=== PATIENT | male | born 1975 | race Two or more races ===

== ENCOUNTER 2019-05-24 15:23 | Emergency (ER) | payer SELFPAY ==
[~2019-05-24] VITALS: Ht 165.1 cm; Wt 122.5 kg
[2019-05-24] MEDS ORDERED: DICLOFENAC SODI25 MG ORAL (15:42)
[2019-05-24 15:55] VITALS: BP 123/86
--- NOTE | 2019-05-24 15:55 | NUR ---
ED Nurse Note: Patient walked in to ER c/o abdominal pain, N/V/D x4 days. States that was not able to hold anything down. Patient presentedd calm, pain 01/09, AAO x4, VSS at this time, skin is dry warm to touch.
[2019-05-24] MEDS ORDERED: Mylanta II UD 30ml ORAL ONE (16:00)
[2019-05-24] MEDS ORDERED: DiphenhydrAMINE 50mg/ml Inj IVP ONE (16:00)
[2019-05-24] MEDS ORDERED: Lidocaine 2% Visc 15ml soln ORAL ONE (16:00)
[2019-05-24] MEDS ORDERED: Metoclopramide 10mg/2ml Inj IVP ONE (16:00)
[2019-05-24 16:06] LABS: APPEARANCE,URINE CLEAR; BILIRUBIN, URINE NEGATIVE (NEGATIVE); GLUCOSE, URINE (UA) NEGATIVE (NEGATIVE); KETONES,URINE 1+ (NEGATIVE); LEUKOCYTE ESTERASE ,URINE NEGATIVE (NEGATIVE); NITRITE,URINE NEGATIVE (NEGATIVE); PH,URINE 6 (4.5-8.0); PROTEIN,URINE 2+ (NEGATIVE); UROBILINOGEN,URINE 1 MG/DL (0.0-1.0)
[2019-05-24 16:07] LABS: COLOR,URINE YELLOW
--- NOTE | 2019-05-24 16:14 | Emergency Room Report ---
History of Present Illness General Chief Complaint: Nausea, Vomiting, and Diarrhea Source: Patient Present Illness HPI Patient presents with several weeks of epigastric and right upper quadrant amber pain. He also says that sometimes it radiates from his right upper back down into his groin area. He takes diclofenac for osteoarthritis of his left knee. This is sent to him by his mother in [place]. He read last night that the diclofenac might cause problems with his stomach. He rates the pain 8/10, constant and radiating towards his back. Its of burning pain and he feels acid only in his stomach but also in his chest and esophagus. He has been taking Tums and other medicines for gastritis without help. He has had loose stools but they have been normal color without any blood. He denies any fevers or chills. The patient occasionally drinks alcohol but not daily. 6 years ago the patient was seen for similar complaints. At that time he had a gallstone. He says he got 1 IV injection to dissolve the gallstone. He has been doing fairly well since that time but has intermittent problems with his epigastric and right upper quadrant region with pain. The patient is disabled from left knee osteoarthritis. He walks with a cane. Allergies: Coded Allergies: No Known Allergies (Unverified , 05/24/19) Patient History Past Medical History: see triage record Social History: Reports: alcohol use; Denies: smoking, drug use Social History Narrative Born in [place], disabled from left knee osteoarthritis Reviewed Nursing Documentation: PMH: Agreed; PSxH: Agreed Nursing Documentation-PMH Hx Hypertension: Yes Review of Systems All Other Systems: negative except mentioned in HPI Physical Exam Vital Signs Date Time Temp Pulse Resp B/P (MAP) Pulse Ox O2 Delivery O2 Flow Rate FiO2 05/24/19 15:36 98.2 112 20 123/86 (98) 97 Room Air Sp02 EP Interpretation: reviewed, normal General Appearance: well appearing, no apparent distress, GCS 15, obese Head: normocephalic Eyes: bilateral eye normal inspection, bilateral eye PERRL, bilateral eye EOMI ENT: moist mucus membranes Neck: supple Respiratory: lungs clear, normal breath sounds Cardiovascular #1: regular rate, rhythm Cardiovascular #2: 2+ radial (R) Gastrointestinal: normal inspection, normal bowel sounds, no mass, non- distended, no guarding, no rebound, tenderness Genitourinary: no CVA tenderness Musculoskeletal: back normal, normal range of motion, other - Walks with limp due to left knee pain Neurologic: alert, oriented x3, grossly normal Psychiatric: mood/affect normal Skin: no rash, warm/dry Medical Decision Making Diagnostic Impression: Primary Impression: Abdominal pain Qualified Codes: R10.13 - Epigastric pain Additional Impressions: Gastritis Qualified Codes: K29.00 - Acute gastritis without bleeding Osteoarthritis of left knee Qualified Codes: M17.12 - Unilateral primary osteoarthritis, left knee ER Course Patient presents with right upper quadrant pain with a history of gallbladder disease and gastritis. Differential includes gallbladder disease, gastritis, peptic ulcer disease, renal stone, diverticulitis, pancreatitis amongst others. The patient will be evaluated with EKG, chest x-ray, ultrasound of the abdomen and labs. The patient will be treated with IV hydration, Reglan, Benadryl and Pepcid, Mylanta and lidocaine.. The patient came by taxi and this might preclude giving opiates. EKG without injury. Chest x-ray clear. Ultrasound with possible common bile duct dilatation. Labs with normal white count, CMP and lipase. Alleged CBD dilatation. CT ordered. CT without gallbladder abnormality. Pain is resolved after treatment. Discussed findings with patient and treatment plan. Patient stable for outpatient observation and treatment. Laboratory Tests Test 05/24/19 15:43 05/24/19 16:03 Urine Color Yellow Urine Appearance Clear Urine pH 6 (4.5-8.0) Urine Specific [place] 1.020 (1.005-1.035) Urine Protein 2+ (NEGATIVE) H Urine Glucose (UA) Negative (NEGATIVE) Urine Ketones 1+ (NEGATIVE) H Urine Blood Negative (NEGATIVE) Urine Nitrite Negative (NEGATIVE) Urine Bilirubin Negative (NEGATIVE) Urine Urobilinogen 1 MG/DL (0.0-1.0) H Urine Leukocyte Esterase Negative (NEGATIVE) Urine RBC 0 /HPF (0 - 0) Urine WBC 0-2 /HPF (0 - 0) Urine Squamous Epithelial Cells None /LPF (NONE/OCC) Urine Bacteria Few /HPF (NONE) Urine Mucus Few /LPF (NONE/OCC) H White Blood Count 9.1 K/UL (4.8-10.8) Red Blood Count 5.98 M/UL (4.70-6.10) Hemoglobin 17.1 G/DL (14.2-18.0) Hematocrit 49.3 % (42.0-52.0) Mean Corpuscular Volume 82 FL (80-99) Mean Corpuscular Hemoglobin 28.5 PG (27.0-31.0) Mean Corpuscular Hemoglobin Concent 34.6 G/DL (32.0-36.0) Red Cell Distribution Width 10.9 % (11.6-14.8) L Platelet Count 275 K/UL (150-450) Mean Platelet Volume 6.2 FL (6.5-10.1) L Neutrophils (%) (Auto) 55.7 % (45.0-75.0) Lymphocytes (%) (Auto) 23.6 % (20.0-45.0) Monocytes (%) (Auto) 8.6 % (1.0-10.0) Eosinophils (%) (Auto) 10.6 % (0.0-3.0) H Basophils (%) (Auto) 1.5 % (0.0-2.0) Prothrombin Time 10.7 SEC (9.30-11.50) Prothrombin Time INR 1.0 (0.9-1.1) PTT 27 SEC (23-33) Sodium Level 141 MMOL/L (136-145) Potassium Level 3.6 MMOL/L (3.5-5.1) Chloride Level 106 MMOL/L (98-107) Carbon Dioxide Level 22 MMOL/L (21-32) Anion Gap 13 mmol/L (5-15) Blood Urea Nitrogen 23 mg/dL (7-18) H Creatinine 1.0 MG/DL (0.55-1.30) Estimate Glomerular Filtration Rate > 60 mL/min (>60) Glucose Level 143 MG/DL (74-106) H Calcium Level 9.2 MG/DL (8.5-10.1) Total Bilirubin 0.7 MG/DL (0.2-1.0) Aspartate Amino Transferase (AST) 78 U/L (15-37) H Alanine Aminotransferase (ALT) 198 U/L (12-78) H Alkaline Phosphatase 99 U/L (46-116) Total Creatine Kinase 109 U/L (26-308) Troponin I 0.000 ng/mL (0.000-0.056) Total Protein 8.8 G/DL (6.4-8.2) H Albumin 4.1 G/DL (3.4-5.0) Globulin 4.7 g/dL Albumin/Globulin Ratio 0.9 (1.0-2.7) L Lipase 78 U/L (73-393) EKG Diagnostic Results Rate: normal Rhythm: NSR ST Segments: no acute changes Rhythm Strip Diag. Results EP Interpretation: yes Rhythm: NSR, no PVC's, no ectopy Chest X-Ray Diagnostic Results Chest X-Ray Diagnostic Results : Chest X-Ray Ordered: Yes # of Views/Limited/Complete: 1 View Indication: Other EP Interpretation: Yes Interpretation: no consolidation, no effusion, no pneumothorax Impression: No acute disease CT/MRI/US Diagnostic Results CT/MRI/US Diagnostic Results #1: Imaging Test Ordered: Ultrasound abdomen Impression Related common bile duct CT/MRI/US Diagnostic Results #2: Imaging Test Ordered: Abdomen pelvis Impression Horseshoe kidney, hepatomegaly with steatosis, small hiatal hernia, bowel normal and small fat-containing umbilical hernia Last Vital Signs Date Time Temp Pulse Resp B/P (MAP) Pulse Ox O2 Delivery O2 Flow Rate FiO2 05/24/19 19:30 98.2 81 18 125/79 95 Room Air Status: improved Disposition: HOME, SELF-CARE Condition: Improved Scripts Mag Hydrox/Al Hydrox/Simeth (MAALOX MAXIMUM STRENGTH SUSP) 355 Ml Oral.susp 30 ML PO Q6HR, #240 ML Prov: Shankar Alas MD 05/24/19 Acetaminophen (Tylenol) 325 Mg Tablet 650 MG ORAL Q6H PRN for Prn Pain/Headache/Temp > 101, #16 TAB 0 Refills Prov: Shankar Alas MD 05/24/19 Famotidine (PEPCID AC) 20 Mg Tablet 20 MG PO DAILY, #30 TAB Prov: Shankar Alas MD 05/24/19 Shankar Alas MD May 24, 2019 16:14
[2019-05-24 16:31] LABS: BASOPHILS % (AUTO) 1.5 % (0.0-2.0); EOSINOPHILS % (AUTO) 10.6 % (0.0-3.0); HEMATOCRIT 49.3 % (42.0-52.0); HEMOGLOBIN 17.1 G/DL (14.2-18.0); LYMPHOCYTES % (AUTO) 23.6 % (20.0-45.0); MEAN CORPUSCULAR VOLUME 82 FL (80-99); MONOCYTES % (AUTO) 8.6 % (1.0-10.0); NEUTROPHILS % (AUTO) 55.7 % (45.0-75.0); PLATELET COUNT 275 K/UL (150-450); RED BLOOD COUNT 5.98 M/UL (4.70-6.10); RED CELL DISTRIBUTION WIDTH 10.9 % (11.6-14.8); WHITE BLOOD COUNT 9.1 K/UL (4.8-10.8)
[2019-05-24 16:41] LABS: ANION GAP 13 mmol/L (5-15); BLOOD UREA NITROGEN 23 mg/dL (7-18); CALCIUM 9.2 MG/DL (8.5-10.1); CARBON DIOXIDE 22 MMOL/L (21-32); CHLORIDE 106 MMOL/L (98-107); POTASSIUM 3.6 MMOL/L (3.5-5.1); SODIUM 141 MMOL/L (136-145)
[2019-05-24 16:45] LABS: ALANINE AMINOTRANSFERASE 198 U/L (12-78); ALBUMIN 4.1 G/DL (3.4-5.0); ALBUMIN/GLOBULIN RATIO 0.9 (1.0-2.7); ALKALINE PHOSPHATASE 99 U/L (46-116); ASPARTATE AMINO TRANSFERASE 78 U/L (15-37); BILIRUBIN,TOTAL 0.7 MG/DL (0.2-1.0); CREATINE KINASE 109 U/L (26-308)
--- NOTE | 2019-05-24 17:32 | Diagnostic Imaging Report ---
ABDOMINAL ULTRASOUND - COMPLETE INDICATION: Abdominal pain. TECHNIQUE: Multiplanar ultrasound examination of the abdomen with greyscale and doppler imaging. COMPARISON: CT abdomen pelvis dated 05/24/2019 FINDINGS: Limited examination due to body habitus. Liver: The liver is normal in size and demonstrates increased echogenicity. No focal abnormalities are noted. Gallbladder: The gallbladder is normal. No stones are visualized. The wall is not thickened. Common bile duct: Dilated, measuring up to 9 mm Pancreas: Incompletely evaluated. Kidneys: The kidneys are normal in size and echogenicity. There is no hydronephrosis. Spleen: The spleen is normal in size and echogenicity. Aorta: The aorta is normal in caliber. IMPRESSION: 1. No evidence of acute cholecystitis or cholelithiasis. 2. Dilated common bile duct of unclear etiology. Please note this finding is not appreciated on comparison CT abdomen and pelvis. Correlation with liver function tests including bilirubin is recommended. 3. Hepatic steatosis.
--- NOTE | 2019-05-24 19:11 | Diagnostic Imaging Report ---
CT ABDOMEN AND PELVIS WITHOUT CONTRAST INDICATION: Abdominal pain TECHNIQUE: Continuous helical transaxial imaging of the abdomen and pelvis was obtained from the lung bases to the pubic symphysis. Coronal 2-D reformats were also obtained. Study obtained in a Siemens sensation [address] Automatic Exposure Control was utilized. Total Dose length Product (DLP): 1398.[address] Dose Index Volume (CTDIvol): 21.20 mGy COMPARISON: None FINDINGS: Lower chest:: Minimal bibasilar atelectasis. Small hiatal hernia. Hepatobiliary:: Mildly enlarged with diffuse hypoattenuation of the parenchyma. Genitourinary:: There is a horseshoe kidney. No hydronephrosis noted in either pole. Urinary bladder is under distended, limiting evaluation. Adrenals:: Unremarkable. Pancreas:: Mild fatty atrophy. Gastrointestinal:: No evidence of obstruction. Appendix is normal. Spleen: : Unremarkable. Peritoneum:: Small fat-containing umbilical hernia. Bones and soft tissues:: There are multilevel discogenic degenerative changes of the visualized spine. IMPRESSION: 1. No acute findings in the abdomen or pelvis. 2. Horseshoe kidney, an anatomic variant. 3. Hepatic steatosis with borderline hepatomegaly. These findings are concordant with the [facility] preliminary report. The CT scanner at [facility] is accredited by the [employer] and the scans are performed using protocols designed to limit radiation exposure to as low as reasonably achievable to attain images of sufficient resolution adequate for diagnostic evaluation
[2019-05-24 19:12] VITALS: BP 125/79
--- NOTE | 2019-05-24 19:21 | NUR ---
ED Nurse Note: received patient from darleen vizcaino. patient sleeping in bed with no acute distress. respirations even and unlabored. vitals stable. no treatment pending at the moment.
[2019-05-24] MEDS ORDERED: MAALOX MAXIMUM355 M1 PO (19:24)
[2019-05-24] MEDS ORDERED: TYLENOL325 MG ORAL (19:24)
[2019-05-24] MEDS ORDERED: PEPCID AC20 M2 PO (19:24)
[2019-05-24 19:30] VITALS: BP 125/79
--- NOTE | 2019-05-24 19:30 | NUR ---
ER DISCHARGE NOTE: Patient is cleared to be discharged per ERMD, pt is aox4, on room air, with stable vital signs. pt was given dc and prescription instructions, pt was able to verbalize understanding, pt id band and iv site removed without complications. pt is able to ambulate with cane. pt took all belongings.
--- NOTE | 2019-05-25 09:54 | Diagnostic Imaging Report ---
Indication: Reason For Exam: ABD PAIN Technique: Single AP view of the chest. Comparison: None. Findings: The cardiomediastinal silhouette is within normal limits when accounting for technique and projection. There are low lung volumes, leading to bronchovascular crowding. Likely left basilar atelectasis. No pneumothorax. No large pleural effusion. No acute osseous or normality. IMPRESSION: Limited examination due to poor inspiratory effort. Likely left basilar atelectasis.
--- NOTE | 2019-05-25 09:56 | Diagnostic Imaging Report ---
Indication: Reason For Exam: ABD PAIN Technique: AP views of the abdomen. Comparison: None. Findings: Bowel gas pattern is nonobstructive. Moderate colonic stool burden. Lung bases are clear. IMPRESSION: Nonobstructive bowel gas pattern.
--- NOTE | 2019-05-27 07:31 | Cardiology Report ---
APPROVED REPORT EKG Measurement Heart [id number] Normal sinus rhythm Cannot rule out Anterior infarct, age undetermined Abnormal ECG
== END 2019-05-24 19:30 | disposition home or self-care (01) ==
LOC: EMR 16:00
DX: K29.00 Acute gastritis without bleeding (principal); M17.12 Unilateral primary osteoarthritis, left knee; I10 Essential (primary) hypertension; K44.9 Diaphragmatic hernia without obstruction or gangrene; K42.9 Umbilical hernia without obstruction or gangrene; K76.0 Fatty (change of) liver, not elsewhere classified; Q63.1 Lobulated, fused and horseshoe kidney; R10.13 Epigastric pain
CPT/HCPCS: 36415; 71045; 74018; 74176; 76700; 80053; 81003; 82550; 83690; 84484; 85025; 85610; 85730; 93005; 96361; 96374; 96375; 99284; J1200; J2765; S0028; J7030